=== PATIENT | male | born 1935 | race Caucasian/White ===

== ENCOUNTER 2017-05-29 17:29 | Inpatient (IN) | payer MEDICARE ==
[2017-05-29] MEDS ORDERED: Piperacillin/Tazobactam 3.375 GM in Sodium Chloride 0.9% 100 ML IVPB SCH (18:00)
[2017-05-29 18:02] LABS: #Basophils 0.1 thou/uL (0.0-0.2); #Eosinphils 0.1 thou/uL (0.0-0.7); #Monocytes 1.3 thou/uL (0.11-0.59); #Neutrophils 16.8 thou/uL (1.40-6.50); %Basophils 0.3 % (0.0-1.0); %Eosinophils 0.3 % (0.0-10.0); %Lymphocytes 5.1 % (21.0-51.0); %Monocytes 6.7 % (0.0-10.0); Hematocrit 41.4 % (42.0-52.0); Mean Platelet Volume 10.3 fL (7.4-10.4); Red Blood Cell (RBC) Count 4.46 mill/uL (4.70-6.10); White Blood Cell (WBC) Count 19.2 thou/uL (4.8-10.8)
[2017-05-29] MEDS ORDERED: Ondansetron HCl/PF 4 MG/2 ML Vial ONE (18:10)
[2017-05-29 18:16] LABS: Lactic Acid - Sepsis 1.5 mmol/L (0.5-2.2)
[2017-05-29 18:19] LABS: ALT (SGPT) 17 U/L (8-55); AST (SGOT) 19 U/L (5-34); Alkaline Phosphatase 66 U/L (40-150); Anion Gap 15 mmol/L (10-20); BUN (Urea Nitrogen) 20 mg/dL (8.4-25.7); Calc. Creatinine Clearance 0 mL/min (70-130); Calcium 8.8 mg/dL (7.8-10.44); Carbon Dioxide 24 mmol/L (23-31); Chloride 102 mmol/L (98-107); Estimated GFR-MDRD 58; Globulin 3.3 g/dL (2.4-3.5); Lipase Less than 4 U/L (8-78)
[2017-05-29 18:21] LABS: Bilirubin Negative (Negative); Blood, Urine Negative (Negative); Glucose, Urine (Dipstick) Negative (Negative); Ketone, Urine 15 mg/dL (Negative); Nitrite Negative (Negative); Protein, Urine (Dipstick) Negative (Neg-Trace)
--- NOTE | 2017-05-29 18:45 | CT ---
CT HEAD NONCONTRAST: 05/29/17 HISTORY: Altered mental status. Slurred speech. FINDINGS: No comparison. There is no evidence of acute intracranial hemorrhage or infarct. Patchy areas of dec reased density within the periventricular white matter of each cerebral hemisphere have the appearan ce of chronic ischemic small vessel disease. Diffuse cortical atrophy is also evident. There is no m ass effect or shift of midline structures. The visualized paranasal sinuses remain well aerated. IMPRESSION: Chronic type findings. No acute intracranial abnormalities are demonstrated on noncontrast CT head. POS: [facility]
--- NOTE | 2017-05-29 18:50 | RAD ---
CHEST ONE VIEW 05/29/17 HISTORY: Sepsis. COMPARISON: 10/18/16. FINDINGS: The cardiac silhouette and pulmonary vasculature are unremarkable. Mediastinum is midline with aorti c calcification. Patchy bibasilar infiltrates are present. Upper lobes are clear. court monitor le ads overlie the chest. IMPRESSION: Patchy bibasilar infiltrates are nonspecific. Clinical correlation regarding other signs and symptom s of bibasilar pneumonitis is required. Continued radiographic followup is suggested. POS: [facility]
[2017-05-29] MEDS ORDERED: HYDROcodone/Acetaminophen 5/325 mg Tablet PO PRN ×2 (21:00)
[2017-05-29] MEDS ORDERED: Ondansetron HCl/PF 4 MG/2 ML Vial IVP PRN (21:00)
[2017-05-29] MEDS ORDERED: Acetaminophen 325 MG TAB PO PRN (21:00)
[2017-05-29] MEDS ORDERED: Ondansetron ODT 4 MG TAB SL PRN (21:00)
[2017-05-29] MEDS ORDERED: Oseltamivir 75 MG CAP PO SCH (21:00)
[2017-05-29] MEDS: Sodium Chloride 0.9% 1,000 ML IV SCH (21:55)
[2017-05-29 22:28] VITALS: BMI 21.1
[2017-05-30] MEDS ORDERED: Piperacillin/Tazobactam 3.375 GM, Admixture Fee 1 EACH in Sodium Chloride 0.9% 100 ML IVPB SCH ×2 (12:30→18:00)
[2017-05-30] MEDS: Sodium Chloride 0.9% 1,000 ML IV SCH ×2 (13:42→19:39)
[2017-05-30] MEDS ORDERED: cefTRIAXone\\ROCEPHIN 1 GM in Sodium Chloride 0.9% 100 ML IVPB SCH (16:45)
[2017-05-30] MEDS: Azithromycin 500 MG in Sodium Chloride 0.9% 250 ML 250 ML IVPB SCH (17:26)
[2017-05-30] MEDS ORDERED: Lisinopril 10 MG TAB PO SCH (18:30)
--- NOTE | 2017-05-30 18:32 | CON ---
DATE OF CONSULTATION: 05/30/2017 REASON FOR CONSULTATION: Respiratory tract infection. HISTORY OF PRESENT ILLNESS: An 82-year-old patient with a history of melanoma in remission after res ection, squamous cell carcinoma of the skin, COPD, coronary artery disease with prior revascularizati on who developed respiratory symptoms 1-2 weeks ago, so his personal physician has given symptomatic medications. Reportedly he was told that he had the flu, but no specific testing for that was done. It is not clear if patient was given antiviral treatment or not. He improved following that and the n he went hunting and developed recrudescence of symptoms associated with fever, shortness of breath, and cough. Initial findings included blood pressure 130/50, pulse 99, respirations 22, O2 sat 95% o n 2 liters nasal cannula, temperature 101.4. Chest x-ray showed bibasilar infiltrates, more confluen t on the right side. Influenza B antigen test positive from the sputum. Patient was started on Aminah flu and Zosyn. Currently, he is feeling a little better. No headaches, visual symptoms, sore throat , odynophagia, dysphagia, no back pain, coughing intermittently, but no sputum production. No chest pain, no abdominal pain or diarrhea, no genitourinary symptoms, no joint symptoms or neurological sym ptoms anymore. PAST MEDICAL HISTORY: COPD, melanoma resection in remission, coronary artery disease with stenting, hyperlipidemia, hypertension. PAST SURGICAL HISTORY: Hernia repair, laminectomy, right knee arthroscopy. SOCIAL HISTORY: Lives in [place], quit smoking 25 years before. ALLERGIES: None. MEDICATIONS: Had been on aspirin, diclofenac, gabapentin, isosorbide, metoprolol, and currently on Z osyn. FAMILY HISTORY: Noncontributory. PHYSICAL EXAMINATION: VITAL SIGNS: T-max 98.5, blood pressure 150/69, pulse 65, respirations 16, O2 sat 98% on 2 liters na luz cannula. SKIN: Showed area of squamous cell carcinoma in the left malar region. Peripheral IV access. No Fo [place] catheter. No lymphadenopathy. HEENT: Ocular movements are conjugate. Oral cavity with no round valley teeth. NECK: Supple. LUNGS: With fairly coarse inspiratory crackles in the right base. HEART: S1, S2, regular rate. No S3 or S4. Diminished heart sounds. ABDOMEN: Soft, distended, not tender. No ascites. No bladder distention. EXTREMITIES: No joint inflammatory activity. Pulses are 1+ in dorsalis pedis. Moves all extremitie s equally. NEUROLOGIC: Cognitive function appears to be intact. LABORATORY DATA: White cell count 19.2, platelets 208, 87% neutrophils. Sodium 137, creatinine 1.21 . Liver profile normal. Urinalysis was normal. ASSESSMENT: 1. Coronary artery disease, prior revascularization. 2. Respiratory tract infection treated with unknown treatment and then with recrudescence of symptom s and high fever. 3. Influenza B positive antigen test 4. Leukocytosis and abnormal chest x-ray. DISCUSSION: The differential diagnosis includes influenza B infection with superimposed bacterial pn eumonia which is the more likely scenario here. Since patient has no teeth or periodontal tissues, t he likelihood of anaerobic component is much less than with those structures in place, so will be mor e concerned with the usual pathogens plus Staphylococcus aureus. Check Streptococcus pneumonia antig en and Legionella pneumonia antigen in urine and switch him to Rocephin and azithromycin. We will co ntinue Tamiflu.
[2017-05-30] MEDS: Mometasone/Formoterol 120 PUFF INHALER INH SCH (19:28)
[2017-05-30] MEDS: cefTRIAXone\\ROCEPHIN 1 GM, Syringe 0.4 ML in Sterile Water 9.6 ML SLOW IVP SCH (19:39)
[2017-05-30] MEDS: guaiFENesin ER 600 MG TAB PO SCH (20:58)
[2017-05-30] MEDS: Oseltamivir 75 MG CAP PO SCH (20:58)
[2017-05-30 21:02] LABS: LegU Control Bar Appear? YES (CONTROL BAR); LegionellaU Control Bkground? CLEAR/WHITE (CLR/WHITE)
[2017-05-30 21:19] LABS: Strp pneuU Control Background? CLEAR/WHITE (CLR/WHITE); Strp pneumo Control Bar Appear YES (CONTROL BAR)
--- NOTE | 2017-05-30 22:12 | HP ---
REASON FOR ADMISSION AND CHIEF COMPLAINT: Fever, weakness, and shortness of breath. HISTORY OF PRESENT ILLNESS: Ms. Le is an 82-year-old male with a past medical history of COPD, hypertension, coronary artery disease, who was brought in because of fever. The patient says he went into the [place] and felt weak and slept for some time. Then, he noticed feeling very weak when he went home, he was still very sleepy and developed a high fever of 103. He also developed some kind of slurred speech, but he had a headache, body weakness, body aches, and high fever. He also has a cough which is nonproductive. He had a temperature of 103. The EMS was called because of these symptoms and EMS found the patient with 103 fever. He received Tylenol and DuoNebs by the EMS. The patient was evaluated in the ER and found to have a temperature of 101.4 and respirations of 22. The ER physician felt the patient has patchy and bibasilar infiltrates and thought to have pneumonia and he was positive for influenza B, so the patient was given Zosyn, vancomycin as well as IV fluids bolus and started on Tylenol, fluids, given Zofran for nausea and admitted for further evaluation and management. PAST MEDICAL HISTORY: 1. Hypertension. 2. Coronary artery disease, status post stent. 3. Chronic obstructive pulmonary disease. 4. Hyperlipidemia. 5. Diabetes mellitus. PAST SURGICAL HISTORY: 1. Status post hernia repair. 2. Status post orthopedic surgery for right shoulder, right knee and bilateral wrists. ALLERGIES: No known drug allergies. CURRENT MEDICATIONS: The patient is supposed to be taking aspirin 81 mg daily, diclofenac sodium 75 mg b.i.d., gabapentin 600 three times daily, isosorbide mononitrate 30 mg daily, metoprolol 50 mg daily, Symbicort inhaler two puffs b.i.d., and DuoNebs q.i.d. FAMILY HISTORY: Nothing of interest. SOCIAL HISTORY: The patient lives with family. He smokes one pack a day. REVIEW OF SYSTEMS: Cardiovascular: Has chest pain and shortness of breath. Respiratory: Has cough, nonproductive, fever. Gastrointestinal: Has nausea and vomiting. Central Nervous System: Has headache, no dizziness. PHYSICAL EXAMINATION: GENERAL: The patient is alert, awake, oriented x3. VITAL SIGNS: Temperature 101.4, pulse 99, respirations 22, blood pressure 138/ 50. HEENT: Normocephalic, atraumatic. Pupils equal and reactive to light. Nasopharynx is pale and dry. Hard and soft palate, no lesions seen. SKIN: Turgor is decreased. NECK: Supple. No JVD. LUNGS: Breath sounds diminished bilaterally. Percussion not dull bilaterally. Expiratory wheeze present bilaterally. HEART: S1, S2 regular. ABDOMEN: Soft, no distention, no tenderness. Normal bowel sounds present. RECTAL: Deferred. CENTRAL NERVOUS SYSTEM: No focal deficits. LABORATORY AND X-RAY FINDINGS: CBC shows WBC 19,000, hemoglobin 13, hematocrit 41, platelets 208. Metabolic panel: Sodium 137, potassium 4, chloride 102, CO2 of 24, urea nitrogen 20, creatinine 1.2, glucose 143. Urinalysis is negative. Chest x-ray shows some bibasilar infiltrates. CT of the brain, chronic type findings, no acute intracranial findings. EKG shows normal sinus rhythm, no acute ST-T wave changes seen. ASSESSMENT: 1. High fever with leukocytosis, rule out sepsis. 2. Influenza B infection. 3. Questionable pneumonia, bi basilar 4. Hypertension, uncontrolled. 5. Chronic obstructive pulmonary disease. 6. Coronary artery disease, status post stent. PLAN: 1. Vital signs q. 4 hours. 2. Activity: As tolerated. 3. Allergies: No known drug allergies. 4. IV fluids normal saline at 18 mL per hour. 5. Tamiflu 75 mg p.o. b.i.d., Zosyn 3.375 grams IV piggyback q. 6 hours. 6. Continue home medications. 7. DuoNebs 1 unit q.i.d., Symbicort 160/4.5 two puffs b.i.d. 8. Consult Dr. Bolivar. [facility]
[2017-05-30] MEDS: Acetaminophen 325 MG TAB PO PRN (23:28)
[2017-05-31] MEDS: Sodium Chloride 0.9% 1,000 ML IV SCH ×2 (07:16→20:43)
[2017-05-31] MEDS: Mometasone/Formoterol 120 PUFF INHALER INH SCH ×2 (07:52→18:37)
[2017-05-31] MEDS: Oseltamivir 75 MG CAP PO SCH ×2 (09:16→20:42)
[2017-05-31] MEDS: Lisinopril 10 MG TAB PO SCH (09:16)
[2017-05-31] MEDS: guaiFENesin ER 600 MG TAB PO SCH ×2 (09:16→20:43)
[2017-05-31] MEDS: Isosorbide Dinitrate 20 MG TAB PO SCH ×2 (16:00→20:42)
[2017-05-31] MEDS: Azithromycin 500 MG in Sodium Chloride 0.9% 250 ML 250 ML IVPB SCH (16:03)
[2017-05-31] MEDS: cefTRIAXone\\ROCEPHIN 1 GM, Syringe 0.4 ML in Sterile Water 9.6 ML SLOW IVP SCH (18:15)
[2017-05-31] MEDS: Budesonide 0.5 MG/2 ML NEB NEB SCH (18:37)
[2017-05-31] MEDS: Temazepam 15 MG CAP PO PRN (20:41)
[2017-05-31] MEDS: Pravastatin Sodium 20 MG TAB PO SCH (20:42)
[2017-06-01 05:36] LABS: #Eosinphils 0.1 thou/uL (0.0-0.7); #Lymphocytes 1.7 thou/uL (1.20-3.40); #Monocytes 0.8 thou/uL (0.11-0.59); #Neutrophils 6.4 thou/uL (1.40-6.50); %Basophils 0.5 % (0.0-1.0); %Eosinophils 1.6 % (0.0-10.0); %Lymphocytes 18.4 % (21.0-51.0); %Monocytes 8.4 % (0.0-10.0); Hematocrit 36.4 % (42.0-52.0); Mean Platelet Volume 9.9 fL (7.4-10.4); Red Blood Cell (RBC) Count 3.86 mill/uL (4.70-6.10)
[2017-06-01 05:45] LABS: Anion Gap 9 mmol/L (10-20); BUN (Urea Nitrogen) 11 mg/dL (8.4-25.7); Calc. Creatinine Clearance 61 mL/min (70-130); Calcium 8.8 mg/dL (7.8-10.44); Carbon Dioxide 29 mmol/L (23-31); Chloride 106 mmol/L (98-107); Estimated GFR-MDRD 74
[2017-06-01] MEDS: Budesonide 0.5 MG/2 ML NEB NEB SCH ×2 (07:35→18:42)
[2017-06-01] MEDS: Mometasone/Formoterol 120 PUFF INHALER INH SCH ×2 (07:49→18:42)
[2017-06-01] MEDS: Oseltamivir 75 MG CAP PO SCH ×2 (09:10→20:49)
[2017-06-01] MEDS: Isosorbide Dinitrate 20 MG TAB PO SCH ×3 (09:10→20:48)
[2017-06-01] MEDS: Alogliptin Benzoate 25 MG TABLET PO SCH (09:10)
[2017-06-01] MEDS: Lisinopril 10 MG TAB PO SCH (09:10)
[2017-06-01] MEDS: Amlodipine 10 MG TAB PO SCH (09:11)
[2017-06-01] MEDS: guaiFENesin ER 600 MG TAB PO SCH ×2 (09:11→20:48)
[2017-06-01] MEDS: Sodium Chloride 0.9% 1,000 ML IV SCH ×2 (09:17→09:43)
--- NOTE | 2017-06-01 11:20 | PQF ---
MILAGRO HOLT VENKAT R MD [id number] [facility]297 [id number] CLINICAL DOCUMENTATION IMPROVEMENT CLARIFICATION FORM: ICD-10 Updated PLEASE DO AN ADDENDUM TO THE PROGRESS NOTE WITH ANY DOCUMENTATION UPDATES OR ADDITIONS AND CARRY THROUGH TO DC SUMMARY. THANK YOU. DATE: 06-01-17 ATTN: DR. DIAZ Please exercise your independent, professional judgment in responding to the clarification form. Clinical indicators are provided on the bottom of this form for your review Please check appropriate box(s): [ ] Pneumonia secondary to COPD w/ Exacerbation [ ] Pneumonia secondary to COPD w/ No Exacerbation [ ] Pneumonia of unknown etiology [ y] Other diagnosis ____flu with bacterial pneumonia [ ] Unable to determine In addition, please specify: Present on Admission (POA): [ ] Yes [ ] No [ ] Unable to determine For continuity of documentation, please document condition throughout progress notes and discharge summary. Thank You. CLINICAL INDICATORS - SIGNS / SYMPTOMS / LABS ER: PULSE 84-99 RESP: 21 -26 TEMP: 101.4 ORAL O2 SAT 92 ON 3LNC H&P: EMS FOUND TEMP 103 BREATH SOUNDS DIMINISHED BILATERALLY; EXPIRATORY WHEEZE PRESENT BILATERALLY HIGH FEVER W/ LEUKOCYTOSIS, RULE OUT SEPSIS CXR: BIBASILAR INFILTRATES ID CONSULT: RESPIRATORY TRACT INFECTION TREATED W/ UNKNOWN TREATMENT AND THEN W / RECRUDESCENCE OF SYMPTOMS AND HIGH FEVER ; INFLUENZA B POSITIVE ANTIGEN TEST ; LEUKOCYTOSIS AND ABNORMAL CXR DIFFERENTIAL DX: INFLUENZA B INFECTION W/ SUPERIMPOSED BACTERIAL PNA RISK FACTORS H&P: COPD SMOKER - SMOKES 1 PACK / DAY TREATMENTS: COPE - MAR - Zithromax 05-30 Rocephin 05-30 DUONEB: 05-30 PULMICORT NEB BID: 05-31 DULERA BID: 05-31 MUCINEX BID: 05-30 TAMIFUL BID: 05-30 OXYGEN 2-3 LNC ID CONSULT: CHECK STREPTOCOCCUS PNA ANTIGEN AND LEGIONELLA PNA ANTIGEN IN URINE THANK YOU, LISE (This form is maintained as a part of the permanent medical record) 2014 [employer]. All Rights Reserved Lise France RN, BS [email or web address] Cell [facility]
--- NOTE | 2017-06-01 11:28 | PQF ---
MILAGRO HOLT VENKAT R MD [id number] [facility]297 [id number] CLINICAL DOCUMENTATION IMPROVEMENT CLARIFICATION FORM: ICD-10 Updated PLEASE DO AN ADDENDUM TO THE PROGRESS NOTE WITH ANY DOCUMENTATION UPDATES OR ADDITIONS AND CARRY THROUGH TO DC SUMMARY. THANK YOU. DATE: 06-01-17 ATTN: DR. DIAZ Please exercise your independent, professional judgment in responding to the clarification form. Clinical indicators are provided on the bottom of this form for your review Please check appropriate box(s): [ ] Sepsis due to Pneumonia [ ] Localized infection without sepsis [y ] Other diagnosis inflenza B [ ] Unable to determine In addition, please specify: Present on Admission (POA): [ ] Yes [ ] No [ ] Unable to determine For continuity of documentation, please document condition throughout progress notes and discharge summary. Thank You. CLINICAL INDICATORS - SIGNS / SYMPTOMS / LABS LABS: 05-29 WBC 19.2 ER: PULSE 84-99 RESP: TEMP: 101.4 ORAL O2 SAT 92 ON 3LNC H&P: EMS FOUND TEMP 103 BREATH SOUNDS DIMINISHED BILATERALLY; EXPIRATORY WHEEZE PRESENT BILATERALLY HIGH FEVER W/ LEUKOCYTOSIS, RULE OUT SEPSIS CXR: BIBASILAR INFILTRATES ID CONSULT: RESPIRATORY TRACT INFECTION TREATED W/ UNKNOWN TREATMENT AND THEN W / RECRUDESCENCE OF SYMPTOMS AND HIGH FEVER ; INFLUENZA B POSITIVE ANTIGEN TEST ; LEUKOCYTOSIS AND ABNORMAL CXR DIFFERENTIAL DX: INFLUENZA B INFECTION W/ SUPERIMPOSED BACTERIAL PNA RISK FACTORS H&P: PNEUMONIA COPD SMOKER - SMOKES 1 PACK / DAY TREATMENTS: COPE - MAR - Zithromax 05-30 Rocephin 05-30 DUONEB: 05-30 PULMICORT NEB BID: 05-31 DULERA BID: 05-31 MUCINEX BID: 05-30 TAMIFUL BID: 05-30 OXYGEN 2-3 LNC ID CONSULT: CHECK STREPTOCOCCUS PNA ANTIGEN AND LEGIONELLA PNA ANTIGEN IN URINE THANK YOU, LISE (This form is maintained as a part of the permanent medical record) 2014 [id number] All Rights Reserved Lise France RN, BS [email or web address] Cell [facility]ITAL[facility]
[2017-06-01] MEDS ORDERED: Nystatin 500,000 UNITS/5 ML UDCUP PO SCH (15:15)
[2017-06-01] MEDS ORDERED: Saccharomyces boulardii 250 MG CAP PO SCH (15:15)
[2017-06-01] MEDS: Azithromycin 500 MG in Sodium Chloride 0.9% 250 ML 250 ML IVPB SCH (17:26)
[2017-06-01] MEDS: Acetaminophen 325 MG TAB PO PRN (17:26)
[2017-06-01] MEDS: cefTRIAXone\\ROCEPHIN 1 GM, Syringe 0.4 ML in Sterile Water 9.6 ML SLOW IVP SCH (18:46)
[2017-06-01] MEDS: Nystatin 500,000 UNITS/5 ML UDCUP PO SCH (20:48)
[2017-06-01] MEDS: Pravastatin Sodium 20 MG TAB PO SCH (20:49)
[2017-06-01] MEDS: Temazepam 15 MG CAP PO PRN (20:49)
[2017-06-02] MEDS: Acetaminophen 325 MG TAB PO PRN ×2 (03:45→14:35)
[2017-06-02] MEDS: Budesonide 0.5 MG/2 ML NEB NEB SCH (07:17)
[2017-06-02] MEDS: Mometasone/Formoterol 120 PUFF INHALER INH SCH (07:17)
[2017-06-02] MEDS: Isosorbide Dinitrate 20 MG TAB PO SCH ×2 (08:47→15:56)
[2017-06-02] MEDS: Amlodipine 10 MG TAB PO SCH (08:47)
[2017-06-02] MEDS: Lisinopril 10 MG TAB PO SCH (08:47)
[2017-06-02] MEDS: Nystatin 500,000 UNITS/5 ML UDCUP PO SCH (08:48)
[2017-06-02] MEDS: guaiFENesin ER 600 MG TAB PO SCH (08:48)
[2017-06-02] MEDS: Alogliptin Benzoate 25 MG TABLET PO SCH (08:48)
[2017-06-02] MEDS: Oseltamivir 75 MG CAP PO SCH (08:48)
[2017-06-02] MEDS ORDERED: Saccharomyces boulardii 250 MG CAP PO SCH (09:00)
[2017-06-02 15:55] VITALS: BP 136/63; TEMP 97.9
== END 2017-06-02 16:28 | disposition home or self-care (01) | DRG 195 ==
LOC: ERS 17:29 → 2NO 19:43
PROVIDERS: ADMIT Internal Medicine; ATTEND Internal Medicine
DX: J10.08 Influenza due to other identified influenza virus with other specified pneumonia (principal); E11.9 Type 2 diabetes mellitus without complications; I10 Essential (primary) hypertension; I25.10 Atherosclerotic heart disease of native coronary artery without angina pectoris; Z95.5 Presence of coronary angioplasty implant and graft; E78.5 Hyperlipidemia, unspecified; Z79.82 Long term (current) use of aspirin; F17.210 Nicotine dependence, cigarettes, uncomplicated
CPT/HCPCS: 36415; 36416; 70450; 71010; 80048; 80053; 81003; 83605; 83690; 85025; 87040; 87086; 87899; 93005; 94640; 94664; 94760; 96365; 96368; 96375; A4216; J0456; J0696; J2405; J2543; J3370; J7050; J7620; J7626

== ENCOUNTER 2018-03-06 11:20 | Outpatient (CLI) | payer MEDICARE ==
--- NOTE | 2018-03-06 12:51 | RAD ---
CHEST TWO VIEWS: HISTORY: COPD. COMPARISON: 08/12/2014, 05/29/2017 FINDINGS: There is atherosclerosis of the aorta. Normal cardiac silhouette. Pulmonary vessels and hilum are n ormal. Costophrenic angles are clear. Hyperinflation without consolidation or mass. No pneumothora x or osseous abnormalities. IMPRESSION: 1. Atherosclerosis. 2. No acute cardiopulmonary process. POS: [facility]
== END 2018-03-06 11:21 | disposition home or self-care (01) ==
LOC: RAD-FRANK 11:20
PROVIDERS: ATTEND Internal Medicine
DX: J44.1 Chronic obstructive pulmonary disease with (acute) exacerbation (principal); I70.90 Unspecified atherosclerosis
CPT/HCPCS: 71046

== ENCOUNTER 2019-02-03 13:00 | Emergency (ER) | payer MEDICARE, MEDICAID ==
[2019-02-03] MEDS ORDERED: Ketorolac Tromethamine 30 MG/ML VIAL ONE ×3 (14:27→18:47)
[2019-02-03 14:28] LABS: #Eosinphils 0.1 thou/uL (0.0-0.7); #Monocytes 0.7 thou/uL (0.11-0.59); #Neutrophils 10.9 thou/uL (1.40-6.50); %Basophils 0.3 % (0.0-1.0); %Eosinophils 0.6 % (0.0-10.0); %Monocytes 5.8 % (0.0-10.0); %Neutrophils 85.4 % (42.0-75.0); Hemoglobin 13.1 g/dL (14.0-18.0); Mean Corpuscular HGB CONC 32.3 g/dL (32.0-36.0); Mean Corpuscular Hemoglobin 29.7 pg (27.0-31.0); Mean Corpuscular Volume 91.7 fL (78.0-98.0); Mean Platelet Volume 9.5 fL (7.4-10.4); Platelet Count 225 thou/uL (130-400); RBC Distribution Width 12.6 % (11.5-14.5); Red Blood Cell (RBC) Count 4.42 mill/uL (4.70-6.10); White Blood Cell (WBC) Count 12.8 thou/uL (4.8-10.8)
[2019-02-03 14:51] LABS: ALT (SGPT) 17 U/L (8-55); AST (SGOT) 17 U/L (5-34); Albumin 4.2 g/dL (3.4-4.8); Alkaline Phosphatase 73 U/L (40-150); Anion Gap 12 mmol/L (10-20); BUN (Urea Nitrogen) 13 mg/dL (8.4-25.7); Bilirubin, Total 0.6 mg/dL (0.2-1.2); Calc. Creatinine Clearance 0 mL/min (70-130); Calcium 9.1 mg/dL (7.8-10.44); Carbon Dioxide 26 mmol/L (23-31); Chloride 100 mmol/L (98-107); Estimated GFR-MDRD 65; Globulin 2.7 g/dL (2.4-3.5); Glucose 107 mg/dL (83-110); Potassium 4.1 mmol/L (3.5-5.1); Protein, Total 6.9 g/dL (5.8-8.1); Sodium 134 mmol/L (136-145)
--- NOTE | 2019-02-03 15:48 | RAD ---
RADIOGRAPH CERVICAL SPINE 4 VIEWS: DATE: 02/03/2019 HISTORY: 84-year-old male with cervicalgia. COMPARISON: None FINDINGS: Reversal of curvature, with apex of kyphosis at C3-4. Diffuse significant loss of height of C3, C4, a nd C5. Severe irregularity and loss of bone of the endplates at C3-4, with appearance of widened interverteb ral disc space at that level. Similar findings of a lesser degree at C4-5. Severe disc space narrowing, endplate sclerosis, and endplate osteophytosis, at C5-6 and C6-7. Chronic grade 1 anteroli sthesis of C2 on C3, probably due to facet DJD. Multilevel bilateral facet DJD. IMPRESSION: 1. High-grade cervical spondylosis with multilevel facet osteoarthrosis and severe degenerative disc disease at mid and lower levels. 2. Cervical spondylitis at C3-4 and C4-5. The changes are nonspecific, but there is a possibility jayson t this could represent infectious cervical spondylitis (osteomyelitis/discitis).
[2019-02-03] MEDS ORDERED: Diazepam 5 MG TAB ONE (16:11)
--- NOTE | 2019-02-03 18:01 | MRI ---
MRI CERVICAL SPINE WITH AND WITHOUT CONTRAST: INDICATIONS: Neck pain. HISTORY: The exam was performed for followup of plain films performed earlier today, which showed severe cervi shiela spondylosis and degenerative changes. Because of the deformity and loss of disk space at C4-C5 a nd C5-C6, diskitis was questioned. FINDINGS: MRI again shows severe degenerative changes of the cervical spine with loss of height at C4, C5, and C6, with loss of disk space and severe hypertrophic changes. Anterior spurring and posterior spondyl osis is very prominent. There is an anterior listhesis at C2-C3. Post contrast images show mild enhancement at the C4-C5 and C5-C6 vertebral bodies and disk spaces, w hich appears to be most consistent with degenerative changes. There is compression on the cord due to the spondylitic changes at the C3-C4, C4-C5, and C5-C6 levels . Cervical cord signal appears normally maintained. No evidence of epidural fluid or abscess. IMPRESSION: Severe degenerative spondylitic changes of the cervical spine. There is mild enhancement, which is f elt to secondary to degenerative change. Since early diskitis/osteomyelitis cannot be completely exc luded, suggest short-term follow-up MRI of the cervical spine with and without contrast, if symptoms persist or worsen. Dr. Ham reviewed the exam and is in agreement with this assessment and recommendation. POS: [facility]
== END 2019-02-03 18:45 | disposition home or self-care (01) ==
LOC: ERS 13:00
DX: M47.812 Spondylosis without myelopathy or radiculopathy, cervical region (principal); I10 Essential (primary) hypertension; I25.10 Atherosclerotic heart disease of native coronary artery without angina pectoris; J44.9 Chronic obstructive pulmonary disease, unspecified; E78.5 Hyperlipidemia, unspecified; E11.9 Type 2 diabetes mellitus without complications; Z87.891 Personal history of nicotine dependence
CPT/HCPCS: 36415; 72040; 72156; 80053; 84484; 85025; 93005; 96374; 96376; J1885

== ENCOUNTER 2020-10-28 08:38 | Outpatient (CLI) | payer MEDICARE, MEDICAID | END 2020-10-28 08:39 | disposition home or self-care (01) | LOC: RAD-FRANK 08:38 | PROVIDERS: ATTEND Nurse Practitioner Family | DX: R09.89 Other specified symptoms and signs involving the circulatory and respiratory systems (principal) | CPT/HCPCS: 71046 ==

== ENCOUNTER 2022-01-25 13:31 | Outpatient (CLI) | payer MEDICARE, MEDICAID | END 2022-01-25 13:32 | disposition home or self-care (01) | LOC: RAD-FRANK 13:31 | PROVIDERS: ATTEND Nurse Practitioner Family | DX: R50.9 Fever, unspecified (principal) | CPT/HCPCS: 71046 ==